=== PATIENT | male | born 1975 | race American Indian/Alaskan Native ===

== ENCOUNTER 2019-03-21 00:11 | Emergency (ER) | payer SELFPAY ==
[2019-03-21] MEDS ORDERED: ASPIRIN PO ONE (00:55)
--- NOTE | 2019-03-21 01:20 | XRay Report ---
CHEST 1 VIEW INDICATION / CLINICAL INFORMATION: Chest Pain. COMPARISON: None available. FINDINGS: SUPPORT DEVICES: None. HEART / MEDIASTINUM: No significant abnormality. LUNGS / PLEURA: No significant pulmonary or pleural abnormality. No pneumothorax. ADDITIONAL FINDINGS: No significant additional findings. IMPRESSION: 1. No acute findings. Signer Name: Beto Lopez MD Signed: 03/21/2019 1:16 AM Workstation Name: [id number]
[2019-03-21 01:34] LABS: Basophils % (Auto) 0.7 % (0.0-1.8); Eosinophils # (Auto) 0.3 K/mm3 (0.0-0.4); Eosinophils % (Auto) 5.3 % (0.0-4.3); Lymphocytes # (Auto) 2.2 K/mm3 (1.2-5.4); Lymphocytes % (Auto) 43.9 % (13.4-35.0); Mean Corpuscular HGB Conc 34 % (32-34); Mean Corpuscular Volume 90 fl (84-94); Monocytes # (Auto) 0.4 K/mm3 (0.0-0.8); Monocytes % (Auto) 8.6 % (0.0-7.3); Platelet Count 179 K/mm3 (140-440); Red Blood Count 4.21 M/mm3 (3.65-5.03); Red Cell Distribution Width 14.7 % (13.2-15.2)
[2019-03-21 01:54] LABS: BUN/Creatinine Ratio 21; Blood Urea Nitrogen 19 mg/dL (9-20); Hemolysis Index 16
--- NOTE | 2019-03-21 03:24 | Emergency Department Report ---
ED General Adult HPI - General Chief complaint: Dyspnea/Respdistress Stated complaint: SOB,NUMBNESS TO LEFT ARM AND LEG Time Seen by Provider: 03/21/19 03:20 Source: patient Mode of arrival: Ambulatory Limitations: No Limitations - History of Present Illness Initial comments: pt is a 43 y/o aam who presents for sob and arm and leg aching numbness pt chelsea es fall injury or trauma , states hx of same in past related to anxiety, states symptoms wax and tomas there is no n/v no diaphoresis there associated sinus congestion and post nasal drip there is no wheezing, cough is productive clear , symptoms are rlieved by rest , symptom exacerbated by environmental exposure Onset/Timin -: days(s) Location: chest (chest wall right lateral ) Radiation: extremity Severity scale (0 -10): 3 Quality: burning, other (numbness ) Consistency: intermittent Improves with: rest Worsens with: movement, other (activity ) Associated Symptoms: chest pain, cough, shortness of breath. denies: confusion, diaphoresis, fever/chills, headaches, loss of appetite, malaise, nausea/vomiting, rash, seizure, syncope, weakness - Related Data Previous Rx's Medication Instructions Recorded Last Taken Type Fluticasone [Flonase] 1 spray NS QDAY #1 bottle 03/21/19 Unknown Rx Ibuprofen [Motrin 800 MG tab] 800 mg PO Q8HR PRN #30 tablet 03/21/19 Unknown Rx Loratadine [Allergy Relief] 10 mg PO DAILY #30 tablet 03/21/19 Unknown Rx diphenhydrAMINE [Benadryl CAP] 25 mg PO Q6HR PRN #30 capsule 03/21/19 Unknown Rx Allergies Allergy/AdvReac Type Severity Reaction Status Date / Time Penicillins Allergy Unknown Verified 03/21/19 00:34 ED Review of Systems ROS: Stated complaint: SOB,NUMBNESS TO LEFT ARM AND LEG Other details as noted in HPI Constitutional: malaise. denies: chills, fever Eyes: denies: eye pain, eye discharge, vision change ENT: congestion Respiratory: cough. denies: orthopnea, shortness of breath, wheezing Cardiovascular: denies: chest pain, palpitations Endocrine: no symptoms reported Gastrointestinal: denies: abdominal pain, nausea, vomiting, diarrhea Genitourinary: denies: urgency, dysuria Musculoskeletal: arthralgia. denies: back pain, joint swelling, myalgia Skin: denies: rash, lesions Neurological: denies: headache, weakness, numbness, paresthesias, confusion, vertigo Psychiatric: anxiety. denies: depression, auditory hallucinations, visual hallucinations, homicidal thoughts, suicidal thoughts Hematological/Lymphatic: denies: easy bleeding, easy bruising ED Past Medical Hx - Past Medical History Previous Medical History?: Yes Additional medical history: brian cholerstrol - Surgical History Past Surgical History?: No - Social History Smoking Status: Former Smoker Substance Use Type: Alcohol - Medications Home Medications: Home Medications Medication Instructions Recorded Confirmed Last Taken Type Fluticasone [Flonase] 1 spray NS QDAY #1 bottle 03/21/19 Unknown Rx Ibuprofen [Motrin 800 MG tab] 800 mg PO Q8HR PRN #30 tablet 03/21/19 Unknown Rx Loratadine [Allergy Relief] 10 mg PO DAILY #30 tablet 03/21/19 Unknown Rx diphenhydrAMINE [Benadryl CAP] 25 mg PO Q6HR PRN #30 capsule 03/21/19 Unknown Rx ED Physical Exam - General Limitations: No Limitations General appearance: alert, in no apparent distress - Head Head exam: Present: atraumatic, normocephalic - Eye Eye exam: Present: normal appearance, PERRL, EOMI Pupils: Present: normal accommodation - ENT ENT exam: Present: mucous membranes moist, TM's normal bilaterally, normal external ear exam. Absent: normal orophraynx - Expanded ENT Exam Expanded Ear exam: Present: normal external inspection Mouth exam: Absent: trismus Teeth exam: Present: dental caries Throat exam: Positive: tonsillar erythema, tonsillomegaly. Negative: tonsillar exudate, R peritonsillar mass, L peritonsillar mass - Neck Neck exam: Present: normal inspection, full ROM. Absent: tenderness, meningismus, lymphadenopathy, thyromegaly - Respiratory Respiratory exam: Present: normal lung sounds bilaterally, chest wall tenderness (right latera chest wall pain reproducible to palpation ). Absent: respiratory distress, wheezes, stridor, prolonged expiratory - Cardiovascular Cardiovascular Exam: Present: regular rate, normal rhythm, normal heart sounds. Absent: systolic murmur, diastolic murmur, rubs, gallop - GI/Abdominal GI/Abdominal exam: Present: soft, normal bowel sounds. Absent: distended, tenderness, guarding, rigid, bruit, hernia - Rectal Rectal exam: Present: deferred, normal inspection - Extremities Exam Extremities exam: Present: normal inspection, full ROM, normal capillary refill. Absent: tenderness, pedal edema, joint swelling, calf tenderness - Back Exam Back exam: Present: normal inspection, full ROM, CVA tenderness (R), CVA tenderness (L). Absent: tenderness, muscle spasm, paraspinal tenderness, vertebral tenderness, rash noted - Neurological Exam Neurological exam: Present: alert, oriented X3, CN II-XII intact, normal gait, reflexes normal. Absent: motor sensory deficit - Psychiatric Psychiatric exam: Present: anxious. Absent: flat affect, homicidal ideation, suicidal ideation - Skin Skin exam: Present: warm, dry, intact, normal color. Absent: rash ED Course Vital Signs 03/21/19 00:15 Temperature 98.4 F Pulse Rate 69 Respiratory 18 Rate Blood Pressure 130/83 O2 Sat by Pulse 100 Oximetry ED Medical Decision Making - Lab Data Result diagrams: 03/21/19 01:15 03/21/19 01:15 - Radiology Data Radiology results: report reviewed, image reviewed Ordering Physician: PAMELA HENLEY MD Date of Service: 03/21/19 Procedure(s): XR chest 1V ap Accession Number(s): [id number] cc: ED MD KALE Fluoro Time In Minutes: CHEST 1 VIEW INDICATION / CLINICAL INFORMATION: Chest Pain. COMPARISON: None available. FINDINGS: SUPPORT DEVICES: None. HEART / MEDIASTINUM: No significant abnormality. LUNGS / PLEURA: No significant pulmonary or pleural abnormality. No pneumothorax. ADDITIONAL FINDINGS: No significant additional findings. IMPRESSION: 1. No acute findings. Signer Name: Beto Lopez MD Signed: 03/21/2019 1:16 AM Workstation Name: [id number] Transcribed By: GA Dictated By: Beto Lopez MD Electronically Authenticated By: Beto Lopez MD Signed Date/Time: 03/21/19115 DD/ 4 TD/TT: - Medical Decision Making this is URI , allergic rhinitis, pt hx hx of anxiety, there is no cp, trop: , 0.01 x1, cxr: normal no chest pain, no n/v no diaphoresis no back pain , arm and leg pian improved with medication pt will follow up with pcp in 1-2 days , return to emergency and core protection. Critical care attestation.: If time is entered above; I have spent that time in minutes in the direct care of this critically ill patient, excluding procedure time. ED Disposition Clinical Impression: URI (upper respiratory infection) Qualifiers: URI type: unspecified viral URI Qualified Code(s): J06.9 - Acute upper respiratory infection, unspecified Disposition: TO HOME OR SELFCARE Is pt being admited?: No Does the pt Need Aspirin: No Condition: Stable Instructions: Chest Pain (ED), Upper Respiratory Infection (ED) Prescriptions: Loratadine [Allergy Relief] 10 mg PO DAILY #30 tablet diphenhydrAMINE [Benadryl CAP] 25 mg PO Q6HR PRN #30 capsule PRN Reason: congestion Fluticasone [Flonase] 1 spray NS QDAY #1 bottle Ibuprofen [Motrin 800 MG tab] 800 mg PO Q8HR PRN #30 tablet PRN Reason: Pain , Severe (7-10) Forms: AMA Form, Work/School Release Form(ED) Time of Disposition: 04:47
[2019-03-21 05:10] VITALS: BP 117/88
== END 2019-03-21 05:11 | disposition home or self-care (01) ==
LOC: ED 00:11
DX: J06.9 Acute upper respiratory infection, unspecified (principal); E78.00 Pure hypercholesterolemia, unspecified; Z87.891 Personal history of nicotine dependence; Z88.0 Allergy status to penicillin; Z79.1 Long term (current) use of non-steroidal anti-inflammatories (NSAID); Z79.899 Other long term (current) drug therapy
CPT/HCPCS: 36415; 71045; 80048; 84484; 85025; 93005; 93010; 99284

== ENCOUNTER 2019-06-10 11:01 | Emergency (ER) | payer SELFPAY ==
--- NOTE | 2019-06-10 11:15 | Event Note ---
ED Screening Note ED Screening Note: states he has blurred vision in the left eye denies any drainage did not get anything in the eye he remembers no foreign body sensation states he used drops over the counter from [employer] no PMHx allergies to meds This initial assessment/diagnostic orders/clinical plan/treatment(s) is/are subject to change based on patients health status, clinical progression and re- assessment by fellow clinical providers in the ED. Further treatment and workup at subsequent clinical providers discretion. Patient/guardian urged not to elope from the ED as their condition may be serious if not clinically assessed and managed. Initial orders include: visual acuity
--- NOTE | 2019-06-10 11:32 | Emergency Department Report ---
ED Eye Problem HPI - General Chief complaint: Eye Problems Stated complaint: EYE VISION Time Seen by Provider: 06/10/19 11:13 Source: patient Mode of arrival: Ambulatory Limitations: No Limitations - History of Present Illness Initial comments: 43 y/o male states he has blurred vision in the left eye and pressure. denies any drainage did not get anything in the eye he remembers no foreign body sensation states he used drops over the counter from [employer] no PMHx allergies to meds PCN. Patient has never had his eyes examine. Does not wear contacts. chief complaint: vision change Onset/Timin -: week(s) Location: left eye If Injury: none Severity scale (0 -10): 7 If Pain, Quality: other (pressure) Consistency: intermittent Associated Symptoms: none Treatments Prior to Arrival: OTC eye drops - Related Data Previous Rx's Medication Instructions Recorded Last Taken Type Fluticasone [Flonase] 1 spray NS QDAY #1 bottle 03/21/19 Unknown Rx Ibuprofen [Motrin 800 MG tab] 800 mg PO Q8HR PRN #30 tablet 03/21/19 Unknown Rx Loratadine [Allergy Relief] 10 mg PO DAILY #30 tablet 03/21/19 Unknown Rx diphenhydrAMINE [Benadryl CAP] 25 mg PO Q6HR PRN #30 capsule 03/21/19 Unknown Rx Erythromycin [Erythromycin Ophth 1 applic OD QID 10 Days #1 tube 06/10/19 Unknown Rx Oint] Allergies Allergy/AdvReac Type Severity Reaction Status Date / Time Penicillins Allergy Unknown Verified 03/21/19 00:34 ED Review of Systems ROS: Stated complaint: EYE VISION Other details as noted in HPI Comment: All other systems reviewed and negative ED Past Medical Hx - Past Medical History Previous Medical History?: Yes Additional medical history: brian cholerstrol - Surgical History Past Surgical History?: No - Social History Smoking Status: Current Every Day Smoker Substance Use Type: None - Medications Home Medications: Home Medications Medication Instructions Recorded Confirmed Last Taken Type Fluticasone [Flonase] 1 spray NS QDAY #1 bottle 03/21/19 Unknown Rx Ibuprofen [Motrin 800 MG tab] 800 mg PO Q8HR PRN #30 tablet 03/21/19 Unknown Rx Loratadine [Allergy Relief] 10 mg PO DAILY #30 tablet 03/21/19 Unknown Rx diphenhydrAMINE [Benadryl CAP] 25 mg PO Q6HR PRN #30 capsule 03/21/19 Unknown Rx Erythromycin [Erythromycin Ophth 1 applic OD QID 10 Days #1 tube 06/10/19 Unknown Rx Oint] ED Physical Exam - General Limitations: No Limitations General appearance: alert, in no apparent distress - Expanded Eye Exam Expanded Eyelids: Normal Inspection: Left Pupils: Regular, Round: Bilateral Sclera/Conjunctival: Injection: Left ED Course Vital Signs 06/10/19 11:12 Temperature 98.0 F Pulse Rate 79 Respiratory 18 Rate Blood Pressure 133/89 O2 Sat by Pulse 99 Oximetry Critical care attestation.: If time is entered above; I have spent that time in minutes in the direct care of this critically ill patient, excluding procedure time. ED Disposition Clinical Impression: Corneal abrasion, left Disposition: DC-01 TO HOME OR SELFCARE Is pt being admited?: No Does the pt Need Aspirin: No Condition: Stable Instructions: Corneal Abrasion (ED) Prescriptions: Erythromycin [Erythromycin Ophth Oint] 1 applic OD QID 10 Days #1 tube Referrals: [facility] [Provider Group] - 3-5 Days MIGUEL VILLATORO MD [Staff Physician] - 3-5 Days
[2019-06-10] MEDS ORDERED: FLUORESCEIN 1 MG STRIP OP ONE (11:35)
[2019-06-10] MEDS ORDERED: BALANCED SALT IRRIG (BSS) OPHTH SOLN 15 ML OU ONE (11:35)
[2019-06-10] MEDS ORDERED: TETRACAINE 0.5% OPHTH SOLN 4ML OU ONE (11:35)
[2019-06-10 12:33] VITALS: BP 121/85
== END 2019-06-10 12:32 | disposition home or self-care (01) ==
LOC: ED 11:01
DX: S00.212A Abrasion of left eyelid and periocular area, initial encounter (principal); F17.200 Nicotine dependence, unspecified, uncomplicated; E78.00 Pure hypercholesterolemia, unspecified; Z79.899 Other long term (current) drug therapy; Z88.0 Allergy status to penicillin; X58.XXXA Exposure to other specified factors, initial encounter; Y93.89 Activity, other specified; Y92.89 Other specified places as the place of occurrence of the external cause; Y99.8 Other external cause status

== ENCOUNTER 2019-09-24 18:38 | Emergency (ER) | payer SELFPAY ==
--- NOTE | 2019-09-24 19:37 | Event Note ---
ED Screening Note Date of service: 09/24/19 Time: 19:32 ED Screening Note: Pt c/o left sided eye pain, headache, and blurry vision x 3 days denies trauma This initial assessment/diagnostic orders/clinical plan/treatment(s) is/are subject to change based on patients health status, clinical progression and re- assessment by fellow clinical providers in the ED. Further treatment and workup at subsequent clinical providers discretion. Patient/guardian urged not to elope from the ED as their condition may be serious if not clinically assessed and managed. Initial orders include: ACC
[2019-09-24] MEDS ORDERED: FLUORESCEIN 1 MG STRIP OP ONE (23:16)
--- NOTE | 2019-09-24 23:37 | Emergency Department Report ---
ED Eye Problem HPI - General Chief complaint: Headache Stated complaint: BLURRED VISION/HEAD PAIN Time Seen by Provider: 09/24/19 19:31 Source: patient Mode of arrival: Ambulatory Limitations: No Limitations - History of Present Illness Initial comments: 44-year-old male presents to the ER this evening complaining of left eye pain and redness. Patient states that it started about 3 days ago. He reports intermittent photophobia. He also reports associated headaches, and some blurry vision in the left eye. He denies any injury to the eye. Increased tearing, but no purulent drainage, and no matting. He denies any foreign body sensation. Denies any welding or grinding. She stated that he had similar symptoms back in June 2019. He states that he was seen and evaluated here at the time, he was told that it was likely secondary to a bacterial infection to the eye. He states that he was prescribed erythromycin at the time, but never used it because his eye symptoms resolved after a day or 2. He states that in the past 3 days he has been using lubricating eyedrops, which hasn't been doing much helping. He states that he tried to find erythromycin antibiotic eye ointment that was prescribed in June was unable to. He does not wear any glasses or contacts. MD chief complaint: eye pain, eye redness, vision change -: Gradual, days(s) (3 days ago ) Location: left eye If Injury: none - Related Data Previous Rx's Medication Instructions Recorded Last Taken Type Fluticasone [Flonase] 1 spray NS QDAY #1 bottle 03/21/19 Unknown Rx Loratadine [Allergy Relief] 10 mg PO DAILY #30 tablet 03/21/19 Unknown Rx diphenhydrAMINE [Benadryl CAP] 25 mg PO Q6HR PRN #30 capsule 03/21/19 Unknown Rx Erythromycin [Erythromycin Ophth 1 applic OD QID 10 Days #1 tube 06/10/19 Unknown Rx Oint] Ibuprofen [Motrin 800 MG tab] 800 mg PO Q8HR PRN #30 tablet 09/24/19 Unknown Rx Tobramycin/Dexamethasone [Tobradex 1 drop OS Q4HR 7 Days #1 drops.susp 09/24/19 Unknown Rx Eye Drops 0.3/0.1%] Allergies Allergy/AdvReac Type Severity Reaction Status Date / Time Penicillins Allergy Unknown Verified 03/21/19 00:34 ED Review of Systems ROS: Stated complaint: BLURRED VISION/HEAD PAIN Other details as noted in HPI Constitutional: denies: chills, fever Eyes: eye pain, vision change, other (increased tearing) ENT: denies: ear pain, throat pain, hearing loss, congestion Skin: denies: rash Neurological: headache. denies: weakness, numbness, paresthesias, confusion, vertigo ED Past Medical Hx - Past Medical History Previous Medical History?: Yes Additional medical history: brian cholesterol - Surgical History Past Surgical History?: No - Social History Smoking Status: Current Every Day Smoker Substance Use Type: Alcohol, Marijuana - Medications Home Medications: Home Medications Medication Instructions Recorded Confirmed Last Taken Type Fluticasone [Flonase] 1 spray NS QDAY #1 bottle 03/21/19 Unknown Rx Loratadine [Allergy Relief] 10 mg PO DAILY #30 tablet 03/21/19 Unknown Rx diphenhydrAMINE [Benadryl CAP] 25 mg PO Q6HR PRN #30 capsule 03/21/19 Unknown Rx Erythromycin [Erythromycin Ophth 1 applic OD QID 10 Days #1 tube 06/10/19 Unknown Rx Oint] Ibuprofen [Motrin 800 MG tab] 800 mg PO Q8HR PRN #30 tablet 09/24/19 Unknown Rx Tobramycin/Dexamethasone [Tobradex 1 drop OS Q4HR 7 Days #1 drops.susp 09/24/19 Unknown Rx Eye Drops 0.3/0.1%] ED Physical Exam - General Limitations: No Limitations General appearance: alert, in no apparent distress - Head Head exam: Present: atraumatic, normocephalic, normal inspection - Eye Eye exam: Present: PERRL, EOMI, conjunctival injection, other (Left conjunctiva moderately injected; No purulent drainage or crusting noted; no apparent foriegn body noted; Roberts lamp exam -- show nothing acute; IOP left eye 25, IOP right eye 22 ). Absent: periorbital swelling, periorbital tenderness Pupils: Present: normal accommodation, other (Visual acuity reviewed and normal ) - Respiratory Respiratory exam: Absent: respiratory distress - Cardiovascular Cardiovascular Exam: Present: regular rate - Neurological Exam Neurological exam: Present: alert, oriented X3, CN II-XII intact, normal gait. Absent: motor sensory deficit - Skin Skin exam: Present: intact ED Course Vital Signs 09/24/19 18:40 Temperature 98.4 F Pulse Rate 77 Respiratory 16 Rate Blood Pressure 126/83 O2 Sat by Pulse 98 Oximetry Critical care attestation.: If time is entered above; I have spent that time in minutes in the direct care of this critically ill patient, excluding procedure time. ED Disposition Clinical Impression: Conjunctivitis Disposition: DC-01 TO HOME OR SELFCARE Is pt being admited?: No Does the pt Need Aspirin: No Condition: Stable Instructions: Conjunctivitis (ED) Prescriptions: Ibuprofen [Motrin 800 MG tab] 800 mg PO Q8HR PRN #30 tablet PRN Reason: Pain , Severe (7-10) Tobramycin/Dexamethasone [Tobradex Eye Drops 0.3/0.1%] 1 drop OS Q4HR 7 Days #1 drops.susp Referrals: LINDSAY RAGSDALE MD [Staff Physician] - 3-5 Days Time of Disposition: 23:55
[2019-09-25 00:11] VITALS: BP 115/79
== END 2019-09-25 00:10 | disposition home or self-care (01) ==
LOC: ED 18:38
DX: H10.9 Unspecified conjunctivitis (principal); F17.200 Nicotine dependence, unspecified, uncomplicated; F12.10 Cannabis abuse, uncomplicated
CPT/HCPCS: 99283

== ENCOUNTER 2019-11-01 13:35 | Emergency (ER) | payer SELFPAY ==
[2019-11-02 02:58] VITALS: BP 112/79
== END 2019-11-01 17:38 | disposition left against medical advice (07) ==
LOC: ED 13:35
DX: R20.0 Anesthesia of skin (principal); Z53.21 Procedure and treatment not carried out due to patient leaving prior to being seen by health care provider
CPT/HCPCS: 93005; 93010

== ENCOUNTER 2019-11-18 17:27 | Emergency (ER) | payer SELFPAY ==
--- NOTE | 2019-11-18 17:50 | Event Note ---
ED Screening Note ED Screening Note: The patient was seen in triage for chest pain wtih aches and sob Labs/imaging ordered to evaluate for a cause of this complaint. Vital signs reviewed, patient awake and alert in NAD. This initial assessment/diagnostic orders/clinical plan/treatment(s) is/are subject to change based on patients health status, clinical progression and re- assessment by fellow clinical providers in the ED. Further treatment and workup at subsequent clinical providers discretion. Patient/guardian urged not to elope from the ED as their condition may be serious if not clinically assessed and managed. Initial orders include:
--- NOTE | 2019-11-18 18:13 | XRay Report ---
CHEST 2 VIEWS INDICATION / CLINICAL INFORMATION: MAIN: chest pain and aches; pt presents to ed with complaint of chest pain. COMPARISON: None available. FINDINGS: SUPPORT DEVICES: None. HEART / MEDIASTINUM: No significant abnormality. LUNGS / PLEURA: No significant pulmonary or pleural abnormality. No pneumothorax. ADDITIONAL FINDINGS: No significant additional findings. IMPRESSION: 1. No acute findings. Signer Name: Beto Lopez MD Signed: 11/18/2019 6:09 PM Workstation Name: [id number]
[2019-11-18] MEDS: ASPIRIN 325 MG TAB PO ONE ×2 (20:02→20:03)
[2019-11-18 20:34] LABS: Basophils % (Auto) 0.5 % (0.0-1.8); Eosinophils # (Auto) 0.1 K/mm3 (0.0-0.4); Eosinophils % (Auto) 3.2 % (0.0-4.3); Hematocrit 43.8 % (35.5-45.6); Hemoglobin 14.5 gm/dl (11.8-15.2); Lymphocytes # (Auto) 1.7 K/mm3 (1.2-5.4); Lymphocytes % (Auto) 40.7 % (13.4-35.0); Mean Corpuscular HGB Conc 33 % (32-34); Mean Corpuscular Volume 91 fl (84-94); Monocytes # (Auto) 0.5 K/mm3 (0.0-0.8); Monocytes % (Auto) 11.7 % (0.0-7.3); Platelet Count 168 K/mm3 (140-440); Red Blood Count 4.83 M/mm3 (3.65-5.03); Red Cell Distribution Width 14.7 % (13.2-15.2)
[2019-11-18 20:54] LABS: Alanine Aminotransferase 43 units/L (7-56); Albumin 4.7 g/dL (3.9-5); BUN/Creatinine Ratio 25; Blood Urea Nitrogen 20 mg/dL (9-20); Calcium 9.4 mg/dL (8.4-10.2); Hemolysis Index 10
--- NOTE | 2019-11-18 23:57 | Emergency Department Report ---
ED Chest Pain HPI - General Chief Complaint: Chest Pain Stated Complaint: CHEST PAIN/HEADACHE/SOB Time Seen by Provider: 11/18/19 17:37 Source: patient Mode of arrival: Ambulatory Limitations: No Limitations - History of Present Illness Initial Comments: Patient is a 44-year-old -Luxembour[place] male with no past medical history except chronic heavy tobacco abuse who presents to the ED with complaint of acute onset persistent intermittent left-sided chest pain with shortness of breath and headache for the last 1 week, although the patient states that he has had similar symptoms in the past which self resolved. Patient states that in the last 12 hours the symptoms have become more frequent and describes the pain as pressure-like tightness that is intermittent. Patient denies nausea, vomiting, diarrhea, cough, palpitations, syncope, change in vision, abdominal pain, sore throat, traumatic injury or heavy lifting, fever and chills. MD Complaint: chest pain, other (body aches; shortness of breath) -: Sudden, week(s) (1) Onset: awoke with symptoms Pain Location: left chest Pain Radiation: LUE Severity: moderate Severity scale (0 -10): 4 Quality: aching, pressure Consistency: intermittent Improves With: nothing Worsens With: nothing re: dyspnea. denies: nausea, vomting, diaphoresis, sense of impending doom Other Symptoms: denies: cough, fever, syncope, rash, acid taste in mouth, leg swelling, palpitations Treatments Prior to Arrival: none Aspirin use within the Past 7 Days: (1) Yes - Related Data On Oral Contraceptives: No Previous Rx's Medication Instructions Recorded Last Taken Type Fluticasone [Flonase] 1 spray NS QDAY #1 bottle 03/21/19 Unknown Rx Loratadine [Allergy Relief] 10 mg PO DAILY #30 tablet 03/21/19 Unknown Rx diphenhydrAMINE [Benadryl CAP] 25 mg PO Q6HR PRN #30 capsule 03/21/19 Unknown Rx Erythromycin [Erythromycin Ophth 1 applic OD QID 10 Days #1 tube 06/10/19 Unknown Rx Oint] Ibuprofen [Motrin 800 MG tab] 800 mg PO Q8HR PRN #30 tablet 09/24/19 Unknown Rx Tobramycin/Dexamethasone [Tobradex 1 drop OS Q4HR 7 Days #1 drops.susp 09/24/19 Unknown Rx Eye Drops 0.3/0.1%] Naproxen 500 mg PO Q12H PRN #24 tablet 11/19/19 Unknown Rx hydrOXYzine PAMOATE [Vistaril] 25 mg PO Q6HR PRN #24 capsule 11/19/19 Unknown Rx Allergies Allergy/AdvReac Type Severity Reaction Status Date / Time Penicillins Allergy Unknown Verified 03/21/19 00:34 Heart Score - HEART Score History: Slightly suspicious EKG: Normal Age: < 45 Risk factors: 1-2 risk factors Troponin: < normal limit HEART Score: 1 - Critical Actions Critical Actions: 0-3 pts:0.9-1.7%risk of adverse cardiac event.Candidate for discharge ED Review of Systems ROS: Stated complaint: CHEST PAIN/HEADACHE/SOB Other details as noted in HPI Constitutional: denies: chills, fever Eyes: denies: eye pain, eye discharge, vision change ENT: denies: ear pain, throat pain Respiratory: denies: cough, shortness of breath, SOB with exertion, wheezing Cardiovascular: chest pain (Left-sided chest pain). denies: palpitations Endocrine: no symptoms reported Gastrointestinal: denies: abdominal pain, nausea, vomiting, diarrhea Genitourinary: denies: urgency, dysuria Musculoskeletal: denies: back pain, joint swelling, arthralgia Skin: denies: rash, lesions Neurological: headache. denies: weakness, paresthesias Psychiatric: denies: anxiety, depression Hematological/Lymphatic: denies: easy bleeding, easy bruising ED Past Medical Hx - Past Medical History Previous Medical History?: Yes Additional medical history: brian cholesterol - Surgical History Past Surgical History?: Yes - Social History Smoking Status: Never Smoker Substance Use Type: None - Medications Home Medications: Home Medications Medication Instructions Recorded Confirmed Last Taken Type Fluticasone [Flonase] 1 spray NS QDAY #1 bottle 03/21/19 Unknown Rx Loratadine [Allergy Relief] 10 mg PO DAILY #30 tablet 03/21/19 Unknown Rx diphenhydrAMINE [Benadryl CAP] 25 mg PO Q6HR PRN #30 capsule 03/21/19 Unknown Rx Erythromycin [Erythromycin Ophth 1 applic OD QID 10 Days #1 tube 06/10/19 Unknown Rx Oint] Ibuprofen [Motrin 800 MG tab] 800 mg PO Q8HR PRN #30 tablet 09/24/19 Unknown Rx Tobramycin/Dexamethasone [Tobradex 1 drop OS Q4HR 7 Days #1 drops.susp 09/24/19 Unknown Rx Eye Drops 0.3/0.1%] Naproxen 500 mg PO Q12H PRN #24 tablet 11/19/19 Unknown Rx hydrOXYzine PAMOATE [Vistaril] 25 mg PO Q6HR PRN #24 capsule 11/19/19 Unknown Rx ED Physical Exam - General Limitations: No Limitations General appearance: alert, in no apparent distress - Head Head exam: Present: atraumatic, normocephalic, normal inspection - Eye Eye exam: Present: normal appearance, PERRL, EOMI Pupils: Present: normal accommodation - ENT ENT exam: Present: normal exam, normal orophraynx, mucous membranes moist, TM's normal bilaterally, normal external ear exam - Neck Neck exam: Present: normal inspection, full ROM - Respiratory Respiratory exam: Present: normal lung sounds bilaterally. Absent: respiratory distress, wheezes, rhonchi, chest wall tenderness, decreased breath sounds, prolonged expiratory - Cardiovascular Cardiovascular Exam: Present: regular rate, normal rhythm, normal heart sounds. Absent: systolic murmur, diastolic murmur, rubs, gallop - GI/Abdominal GI/Abdominal exam: Present: soft, normal bowel sounds. Absent: tenderness, guarding, rebound, hyperactive bowel sounds, hypoactive bowel sounds, organomegaly - Extremities Exam Extremities exam: Present: normal inspection, full ROM, normal capillary refill - Back Exam Back exam: Present: normal inspection, full ROM. Absent: tenderness, CVA tenderness (R), CVA tenderness (L), muscle spasm, paraspinal tenderness, vertebral tenderness - Neurological Exam Neurological exam: Present: alert, oriented X3, CN II-XII intact, normal gait, reflexes normal - Psychiatric Psychiatric exam: Present: normal affect, normal mood - Skin Skin exam: Present: warm, dry, intact, normal color. Absent: rash ED Course Vital Signs 11/18/19 11/18/19 17:36 17:40 Temperature 97.6 F 97.6 F Pulse Rate 83 76 Respiratory 18 18 Rate Blood Pressure 123/83 123/83 O2 Sat by Pulse 99 99 Oximetry BEULAH score - Beulah Score Age > 65: (0) No Aspirin use within the Past 7 Days: (0) No 3 or more CAD Risk Factors: (0) No 2 or more Angina events in past 24 hrs: (0) No Known CAD with more than 50% Stenosis: (0) No Elevated Cardiac Markers: (0) No ST Deviation Greater than 0.5mm: (0) No BEULAH Score: 0 ED Medical Decision Making - Lab Data Result diagrams: 11/18/19 20:14 11/18/19 20:14 - EKG Data EKG shows normal: sinus rhythm Rate: normal - EKG Data Interpretation: normal EKG 11/18/19 23:58 The EKG shows normal sinus rhythm with a ventricular rate of [address] or T wave abnormalities. - Radiology Data Radiology results: report reviewed, image reviewed Chest x-ray shows no acute cardiopulmonary abnormalities or pneumonitis. - Medical Decision Making This is a 44-year-old male with a history of chronic heavy tobacco abuse who pre sented to the ED with left-sided chest pain that radiates to the left arm intermittently with shortness of breath and headache for the last 1 week, and which got worse in the last 12 hours. In the ED, patient is alert and oriented x3 and is not in distress with normal vital signs. The EKG shows normal sinus rhythm with a ventricular rate of [address] or T wave abnormalities. Chest x-ray shows no acute cardiopulmonary abnormalities. Lab test results were reviewed and are all nonactionable including initial and repeat troponin levels. Patient heart score is 1 and he is PERC negative by Wells criteria. Patient was also advised to consider quitting tobacco abuse which he will bleed to doing. Patient symptoms are likely due to anxiety and nonspecific musculoskeletal chest wall pain. Patient was discharged home on medications and advised to follow-up with his primary care physician in 7 to 10 days for reevaluation or return to the ED immediately if symptoms get worse. - Differential Diagnosis CAD; Anxiety; Muscle strain; costochondritis Critical care attestation.: If time is entered above; I have spent that time in minutes in the direct care of this critically ill patient, excluding procedure time. ED Disposition Clinical Impression: Acute nonspecific chest pain with low risk of coronary artery disease, Muscle strain of anterior chest wall, Anxiety as acute reaction to exceptional stress Disposition: DC-01 TO HOME OR SELFCARE Is pt being admited?: No Does the pt Need Aspirin: No Condition: Stable Instructions: Chest Pain (ED), Muscle Strain (ED), Costochondritis (ED), Anxiety (ED) Additional Instructions: All test results are unremarkable with no acute process. Therefore take medication as advised and follow-up with your primary care physician in 7 to 10 days for reevaluation. Return to the ED immediately if symptoms get worse. Prescriptions: Naproxen 500 mg PO Q12H PRN #24 tablet PRN Reason: Pain , Severe (7-10) hydrOXYzine PAMOATE [Vistaril] 25 mg PO Q6HR PRN #24 capsule PRN Reason: Anxiety Referrals: NISREEN AGUDELO MD [Staff Physician] - 7-10 days Time of Disposition: 00:03 Print Language: TURKISH
[2019-11-19 00:37] VITALS: BP 126/85
== END 2019-11-19 00:36 | disposition home or self-care (01) ==
LOC: ED 17:27
DX: S29.011A Strain of muscle and tendon of front wall of thorax, initial encounter (principal); F41.8 Other specified anxiety disorders; E78.00 Pure hypercholesterolemia, unspecified; Z79.899 Other long term (current) drug therapy; Z88.0 Allergy status to penicillin; X58.XXXA Exposure to other specified factors, initial encounter; Y93.89 Activity, other specified; Y92.89 Other specified places as the place of occurrence of the external cause; Y99.8 Other external cause status
CPT/HCPCS: 36415; 71046; 80053; 84484; 85025; 93005; 93010

== ENCOUNTER 2020-05-09 23:24 | Emergency (ER) | payer SELFPAY ==
[2020-05-10 00:17] VITALS: BP 136/90
[2020-05-10 00:59] LABS: Basophils % (Auto) 0.3 % (0.0-1.8); Eosinophils # (Auto) 0.1 K/mm3 (0.0-0.4); Eosinophils % (Auto) 2.2 % (0.0-4.3); Hematocrit 41.5 % (35.5-45.6); Hemoglobin 13.9 gm/dl (11.8-15.2); Mean Corpuscular HGB Conc 34 % (32-34); Mean Corpuscular Volume 91 fl (84-94); Monocytes # (Auto) 0.6 K/mm3 (0.0-0.8); Monocytes % (Auto) 12.4 % (0.0-7.3); Platelet Count 175 K/mm3 (140-440); Red Blood Count 4.56 M/mm3 (3.65-5.03); Red Cell Distribution Width 14.9 % (13.2-15.2)
[2020-05-10 01:18] LABS: BUN/Creatinine Ratio 21; Blood Urea Nitrogen 17 mg/dL (9-20); Calcium 9.6 mg/dL (8.4-10.2); Hemolysis Index 8
[2020-05-10] MEDS ORDERED: predniSONE 20 MG TAB PO ONE (02:15)
[2020-05-10] MEDS ORDERED: IBUPROFEN 600 MG TAB PO ONE (02:15)
[2020-05-10] MEDS ORDERED: IPRATROPIUM/ALBUTEROL SULFATE 3 ML AMPUL.NEB IH ONE (02:15)
--- NOTE | 2020-05-10 02:57 | XRay Report ---
CHEST 2 VIEWS INDICATION: cough. COMPARISON: 11/18/2019. FINDINGS: Support devices: None. Heart: Within normal limits. Lungs/Pleura: No acute air space or interstitial disease. No significant pleural effusion. IMPRESSION: No acute findings. Signer Name: Hira Warner MD Signed: 05/10/2020 2:52 AM Workstation Name: [id number]
--- NOTE | 2020-05-10 03:18 | Emergency Department Report ---
- General Chief Complaint: Dyspnea/Respdistress Stated Complaint: BRITTNEY/COUGH Source: patient Mode of arrival: Ambulatory Limitations: No Limitations - History of Present Illness Initial Comments: Patient is 44 yo AA male with no past medical history who presents to the ED with c/o acute onset persistent nasal and sinus congestion, frontal sinus congestion, headache, sore throat and hoarseness, dry cough with generalized weakness for the last 1 week, worse in the last 2 days. Patient states that he has been taking OTC remedies with no relief. Patient states that he decided to come to the ED for evaluation when the symptoms get worse. Patient denies dyspnea, nausea, vomiting, chest pain, dizziness, vision changes, fever and chills, abdominal pain or vision changes. MD Complaint: cough, sore throat, rhinorrhea, nasal congestion -: Sudden, week(s) (1) Severity: moderate Severity scale (0 -10): 6 Quality: sharp, aching Consistency: constant Improves With: OTC cold medicine, cough suppressant Worsens With: nothing Associated Symptoms: denies other symptoms, headache, rhinorrhea, nasal congestion, sore throat, cough, shortness of breath. denies: fever, chills, myalgias, stiff neck, chest pain, nausea, vomiting, diarrhea, dysuria, rash, confusion, right sweats, epistaxis, other Treatments Prior to Arrival: "cold medicine" - Related Data Previous Rx's Medication Instructions Recorded Last Taken Type Fluticasone [Flonase] 1 spray NS QDAY #1 bottle 03/21/19 Unknown Rx Loratadine [Allergy Relief] 10 mg PO DAILY #30 tablet 03/21/19 Unknown Rx diphenhydrAMINE [Benadryl CAP] 25 mg PO Q6HR PRN #30 capsule 03/21/19 Unknown Rx Erythromycin [Erythromycin Ophth 1 applic OD QID 10 Days #1 tube 06/10/19 Unknown Rx Oint] Ibuprofen [Motrin 800 MG tab] 800 mg PO Q8HR PRN #30 tablet 09/24/19 Unknown Rx Tobramycin/Dexamethasone [Tobradex 1 drop OS Q4HR 7 Days #1 drops.susp 09/24/19 Unknown Rx Eye Drops 0.3/0.1%] Naproxen 500 mg PO Q12H PRN #24 tablet 11/19/19 Unknown Rx hydrOXYzine PAMOATE [Vistaril] 25 mg PO Q6HR PRN #24 capsule 11/19/19 Unknown Rx Albuterol Sulfate [Proventil Hfa] 1 - 2 puff IH Q6H PRN #1 hfa.aer.ad 05/10/20 Unknown Rx Azithromycin [Zithromax Z-MAMADOU] 250 mg PO DAILY #6 tablet 05/10/20 Unknown Rx Benzonatate [Tessalon Perles] 100 mg PO Q8HR #30 capsule 05/10/20 Unknown Rx Cetirizine HCl [Zyrtec 10mg tab] 10 mg PO DAILY #30 tablet 05/10/20 Unknown Rx Ibuprofen [Motrin] 800 mg PO Q8HR PRN #24 tablet 05/10/20 Unknown Rx methylPREDNISolone [Medrol 4MG 4 mg PO DAILY #21 tab.ds.pk 05/10/20 Unknown Rx DOSEPAK (21 tabs)] Allergies Allergy/AdvReac Type Severity Reaction Status Date / Time Penicillins Allergy Unknown Verified 03/21/19 00:34 ED Review of Systems ROS: Stated complaint: BRITTNEY/COUGH Other details as noted in HPI Constitutional: denies: chills, fever Eyes: denies: eye pain, eye discharge, vision change ENT: throat pain, congestion, other (Frontal sinus pressure pain). denies: ear pain Respiratory: cough, shortness of breath, wheezing Cardiovascular: denies: chest pain, palpitations Endocrine: no symptoms reported Gastrointestinal: denies: abdominal pain, nausea, diarrhea Genitourinary: denies: urgency, dysuria Musculoskeletal: denies: back pain, joint swelling, arthralgia Skin: denies: rash, lesions Neurological: headache. denies: weakness, paresthesias Psychiatric: denies: anxiety, depression Hematological/Lymphatic: denies: easy bleeding, easy bruising ED Past Medical Hx - Past Medical History Previous Medical History?: Yes Additional medical history: high cholesterol - Surgical History Past Surgical History?: No - Social History Smoking Status: Never Smoker Substance Use Type: Alcohol - Medications Home Medications: Home Medications Medication Instructions Recorded Confirmed Last Taken Type Fluticasone [Flonase] 1 spray NS QDAY #1 bottle 03/21/19 Unknown Rx Loratadine [Allergy Relief] 10 mg PO DAILY #30 tablet 03/21/19 Unknown Rx diphenhydrAMINE [Benadryl CAP] 25 mg PO Q6HR PRN #30 capsule 03/21/19 Unknown Rx Erythromycin [Erythromycin Ophth 1 applic OD QID 10 Days #1 tube 06/10/19 Unknown Rx Oint] Ibuprofen [Motrin 800 MG tab] 800 mg PO Q8HR PRN #30 tablet 09/24/19 Unknown Rx Tobramycin/Dexamethasone [Tobradex 1 drop OS Q4HR 7 Days #1 drops.susp 09/24/19 Unknown Rx Eye Drops 0.3/0.1%] Naproxen 500 mg PO Q12H PRN #24 tablet 11/19/19 Unknown Rx hydrOXYzine PAMOATE [Vistaril] 25 mg PO Q6HR PRN #24 capsule 11/19/19 Unknown Rx Albuterol Sulfate [Proventil Hfa] 1 - 2 puff IH Q6H PRN #1 hfa.aer.ad 05/10/20 Unknown Rx Azithromycin [Zithromax Z-MAMADOU] 250 mg PO DAILY #6 tablet 05/10/20 Unknown Rx Benzonatate [Tessalon Perles] 100 mg PO Q8HR #30 capsule 05/10/20 Unknown Rx Cetirizine HCl [Zyrtec 10mg tab] 10 mg PO DAILY #30 tablet 05/10/20 Unknown Rx Ibuprofen [Motrin] 800 mg PO Q8HR PRN #24 tablet 05/10/20 Unknown Rx methylPREDNISolone [Medrol 4MG 4 mg PO DAILY #21 tab.ds.pk 05/10/20 Unknown Rx DOSEPAK (21 tabs)] ED Physical Exam - General Limitations: No Limitations General appearance: alert, in no apparent distress - Head Head exam: Present: atraumatic, normocephalic, normal inspection - Eye Eye exam: Present: normal appearance, PERRL, EOMI Pupils: Present: normal accommodation - ENT ENT exam: Present: normal orophraynx, mucous membranes moist, TM's normal bilaterally, normal external ear exam, other (Palpable bilateral maxillary sinus tenderness: Grossly congested nasal passages; erythematous oropharynx) - Neck Neck exam: Present: normal inspection, full ROM, lymphadenopathy - Respiratory Respiratory exam: Present: normal lung sounds bilaterally, wheezes (Mild diffuse wheezes throughout). Absent: respiratory distress, rales, rhonchi, chest wall tenderness, accessory muscle use, decreased breath sounds - Cardiovascular Cardiovascular Exam: Present: regular rate, normal rhythm, normal heart sounds. Absent: systolic murmur, diastolic murmur, rubs, gallop - GI/Abdominal GI/Abdominal exam: Present: soft, normal bowel sounds. Absent: tenderness, guarding, rebound, hyperactive bowel sounds - Extremities Exam Extremities exam: Present: normal inspection, full ROM, normal capillary refill - Back Exam Back exam: Present: normal inspection, full ROM. Absent: tenderness, CVA tenderness (R), CVA tenderness (L), muscle spasm, vertebral tenderness - Neurological Exam Neurological exam: Present: alert, oriented X3, CN II-XII intact, normal gait, reflexes normal - Psychiatric Psychiatric exam: Present: normal affect, normal mood - Skin Skin exam: Present: warm, dry, intact, normal color. Absent: rash ED Course Vital Signs 05/10/20 00:11 Temperature 98.2 F Pulse Rate 82 Respiratory 18 Rate Blood Pressure 136/90 O2 Sat by Pulse 100 Oximetry ED Medical Decision Making - Lab Data Result diagrams: 05/10/20 00:19 05/10/20 00:19 - Radiology Data Radiology results: report reviewed, image reviewed Findings [address] [address] XRay Report Signed Patient: SHELBY NGO MR#: [id number] 6 : 1975 Acct:[id number] Age/Sex: 44 / M ADM Date: 05/09/20 Loc: ED Attending Dr: Ordering Physician: JOSELIN KENNEDY Date of Service: 05/10/20 Procedure(s): XR chest routine 2V Accession Number(s): [id number] cc: JOSELIN KENNEDY Fluoro Time In Minutes: CHEST 2 VIEWS INDICATION: cough. COMPARISON: 11/18/2019. FINDINGS: Support devices: None. Heart: Within normal limits. Lungs/Pleura: No acute air space or interstitial disease. No significant pleural effusion. IMPRESSION: No acute findings. Signer Name: Hira Warner MD Signed: 05/10/2020 2:52 AM Workstation Name: [id number] Transcribed By: ES Dictated By: Hira Warner MD Electronically Authenticated By: Hira Warner MD Signed Date/Time: 05/10/20251 DD/ 1 TD/TT: - Medical Decision Making This is 44 yo AA male with no past medical history who presents to the ED with c/o acute onset persistent nasal and sinus congestion, frontal sinus congestion, headache, sore throat and hoarseness, dry cough with generalized weakness for the last 1 week, worse in the last 2 days. Patient states that he has been taking OTC remedies with no relief. Patient states that he decided to come to the ED for evaluation when the symptoms get worse. In the ED, patient is alert and oriented x 3 and is in no acute distress. Patient was treated in the ED with Duoneb and prednisone. Chest x-ray shows no acute cardiopulmonary abnormalities or pneumonitis. On reevaluation, patient felt better and was discharged home on medications and advised to follow up with her his Primary Care Physician in 7-10 days for reevaluation, and was advised to return to the ED immediately if symptoms get worse. - Differential Diagnosis Sinusitis, pneumonia, URI, pharyngitis, bronchitis Critical care attestation.: If time is entered above; I have spent that time in minutes in the direct care of this critically ill patient, excluding procedure time. ED Disposition Clinical Impression: Acute bacterial sinusitis, Acute upper respiratory infection Acute pharyngitis Qualifiers: Pharyngitis/tonsillitis etiology: unspecified etiology Qualified Code(s): J02.9 - Acute pharyngitis, unspecified Acute bronchitis Qualifiers: Bronchitis organism: unspecified organism Qualified Code(s): J20.9 - Acute bronchitis, unspecified Disposition: DC-01 TO HOME OR SELFCARE Is pt being admited?: No Does the pt Need Aspirin: No Condition: Stable Instructions: Acute Bronchitis (ED), Pharyngitis (ED), Acute Bacterial Rh inosinusitis (ED) Additional Instructions: Take medication with food, drink plenty of fluids and follow-up with your primary care physician in 7 to 10 days for reevaluation. Return to the ED immediately if symptoms get worse. Prescriptions: methylPREDNISolone [Medrol 4MG DOSEPAK (21 tabs)] 4 mg PO DAILY #21 tab.ds.pk Ibuprofen [Motrin] 800 mg PO Q8HR PRN #24 tablet PRN Reason: Pain , Severe (7-10) Albuterol Sulfate [Proventil Hfa] 1 - 2 puff IH Q6H PRN #1 hfa.aer.ad PRN Reason: Dyspnea Benzonatate [Tessalon Perles] 100 mg PO Q8HR #30 capsule Azithromycin [Zithromax Z-MAMADOU] 250 mg PO DAILY #6 tablet Cetirizine HCl [Zyrtec 10mg tab] 10 mg PO DAILY #30 tablet Referrals: [facility] [Provider Group] - 3-5 Days Forms: Work/School Release Form(ED) Time of Disposition: 03:16 Print Language: KYRGYZ
== END 2020-05-10 03:20 | disposition home or self-care (01) ==
LOC: ED 23:24
DX: J01.80 Other acute sinusitis (principal); B96.89 Other specified bacterial agents as the cause of diseases classified elsewhere; J02.8 Acute pharyngitis due to other specified organisms; J20.9 Acute bronchitis, unspecified; Z79.899 Other long term (current) drug therapy; Z88.0 Allergy status to penicillin
CPT/HCPCS: 36415; 71046; 80048; 85025; 93005; 99284; J7512

== ENCOUNTER 2020-09-03 | Emergency (ER) | payer SELFPAY ==
[2020-09-03 00:08] VITALS: BP 131/85
== END 2020-09-03 01:30 | disposition left against medical advice (07) ==
LOC: ED
DX: R07.9 Chest pain, unspecified (principal); Z53.21 Procedure and treatment not carried out due to patient leaving prior to being seen by health care provider

== ENCOUNTER 2020-09-13 01:41 | Emergency (ER) | payer SELFPAY ==
[2020-09-13] MEDS ORDERED: ASPIRIN 325 MG TAB PO ONE (02:03)
[2020-09-13 02:11] VITALS: BP 130/86
--- NOTE | 2020-09-13 02:44 | XRay Report ---
XR chest 1V ap INDICATION / CLINICAL INFORMATION: Chest Pain COMPARISON: 05/10/2020 FINDINGS: SUPPORT DEVICES: None. HEART / MEDIASTINUM: No significant abnormality. LUNGS / PLEURA: Lungs are clear. Costophrenic sulci are sharp. No pneumothorax. ADDITIONAL FINDINGS: No significant additional findings. IMPRESSION: 1. No acute findings. Signer Name: Venancio Vincent MD Signed: 09/13/2020 2:40 AM Workstation Name: [id number]
[2020-09-13 02:45] LABS: BUN/Creatinine Ratio 18; Blood Urea Nitrogen 16 mg/dL (9-20); Calcium 9.7 mg/dL (8.4-10.2); Hemolysis Index 5
[2020-09-13 02:56] LABS: Hematocrit 39.5 % (35.5-45.6); Hemoglobin 13.3 gm/dl (11.8-15.2); Mean Corpuscular HGB Conc 34 % (32-34); Mean Corpuscular Volume 91 fl (84-94); Platelet Count 200 K/mm3 (140-440); Red Blood Count 4.34 M/mm3 (3.65-5.03); Red Cell Distribution Width 14.8 % (13.2-15.2)
[2020-09-13 03:07] LABS: Eosinophils % (Auto) 3.4 % (0.0-4.3); Lymphocytes % (Auto) 33.7 % (13.4-35.0); Monocytes % (Auto) 13.9 % (0.0-7.3)
[2020-09-13 03:08] LABS: Basophils % (Auto) 0.3 % (0.0-1.8); Eosinophils # (Auto) 0.1 K/mm3 (0.0-0.4); Lymphocytes # (Auto) 1.4 K/mm3 (1.2-5.4); Monocytes # (Auto) 0.6 K/mm3 (0.0-0.8)
[2020-09-13] MEDS ORDERED: IBUPROFEN 400 MG TAB PO ONE (03:32)
[2020-09-13] MEDS ORDERED: ACETAMINOPHEN 325 MG TAB PO ONE (03:32)
--- NOTE | 2020-09-13 03:32 | Emergency Department Report ---
ED General Adult HPI - General Chief complaint: Chest Pain Stated complaint: CHEST PAIN/LEFT SIDE NUMBNESS PUI?: No Time Seen by Provider: 09/13/20 03:09 Source: patient, RN notes reviewed, old records reviewed Mode of arrival: Ambulatory Limitations: No Limitations - History of Present Illness Initial comments: The patient was evaluated in the emergency department for symptoms described in the history of present illness. He/she was evaluated in the context of the global COVID-19 pandemic, which necessitated consideration that the patient might be at risk for infection with the virus that causes COVID-19. Institutional protocols and algorithms that pertain to the evaluation of patients at risk for COVID-19 are in a state of rapid change based on information released by regulatory bodies including the CDC and federal and state organizations. These policies and algorithms were followed during the patient's care in the emergency department. Please note that these policies, procedures and recommendations changed on a rapid basis. 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 He is not known to myself previously. He reports he may have a history of high cholesterol. He does not have a primary care doctor. He presents to the ER with a complaint of nontraumatic left-sided chest wall pain, which does not radiate to the back, arms or neck. There is no vomiting, diaphoresis, or exertional shortness of breath. He denies travel, surgery, leg pain or leg swelling, oral contraceptive use, DVT and pulmonary embolism risk factors. He denies a family and personal history of ischemic heart disease, DVT and pulmonary embolism. Of note, the patient also associates/endorses nontraumatic left bicep/tricep/forearm pain, present for approximately 1 week. His left-sided chest wall pain is present for 1 week. He also endorses a complaint of "migraine headache." He describes a headache which is frontal, bitemporal, intermittent, and and "goes all over." He states he has been having headaches like this "for months and years." He denies sudden thunderclap headache, and indicates that the headache is not the worst headache of his life. The headache did not reach maximal intensity within an hour. This headache that has been having has been present for approximately 1 week intermittently. There is no loss of vision. There is no neck pain. There is no extremity weakness or numbness. There is no ataxia. He is taking some [id number] Goody powder and aspirin, with minimal relief in symptoms. No fever, no chills, no neck pain, no neck stiffness, no loss of taste or smell. -: Gradual, days(s) Location: head, chest, left, upper extremity Radiation: non-radiation Quality: aching Consistency: intermittent Improves with: other (Chest wall pain decreases with rest. It increases with palpation. Headache does not have exacerbating or relieving factors) - Related Data Previous Rx's Medication Instructions Recorded Last Taken Type Fluticasone [Flonase] 1 spray NS QDAY #1 bottle 03/21/19 Unknown Rx Loratadine [Allergy Relief] 10 mg PO DAILY #30 tablet 03/21/19 Unknown Rx diphenhydrAMINE [Benadryl CAP] 25 mg PO Q6HR PRN #30 capsule 03/21/19 Unknown Rx Erythromycin [Erythromycin Ophth 1 applic OD QID 10 Days #1 tube 06/10/19 Unknown Rx Oint] Ibuprofen [Motrin 800 MG tab] 800 mg PO Q8HR PRN #30 tablet 09/24/19 Unknown Rx Tobramycin/Dexamethasone [Tobradex 1 drop OS Q4HR 7 Days #1 drops.susp 09/24/19 Unknown Rx Eye Drops 0.3/0.1%] Naproxen 500 mg PO Q12H PRN #24 tablet 11/19/19 Unknown Rx hydrOXYzine PAMOATE [Vistaril] 25 mg PO Q6HR PRN #24 capsule 11/19/19 Unknown Rx Albuterol Sulfate [Proventil Hfa] 1 - 2 puff IH Q6H PRN #1 hfa.aer.ad 05/10/20 Unknown Rx Azithromycin [Zithromax Z-MAMADOU] 250 mg PO DAILY #6 tablet 05/10/20 Unknown Rx Benzonatate [Tessalon Perles] 100 mg PO Q8HR #30 capsule 05/10/20 Unknown Rx Cetirizine HCl [Zyrtec 10mg tab] 10 mg PO DAILY #30 tablet 05/10/20 Unknown Rx Ibuprofen [Motrin] 800 mg PO Q8HR PRN #24 tablet 05/10/20 Unknown Rx methylPREDNISolone [Medrol 4MG 4 mg PO DAILY #21 tab.ds.pk 05/10/20 Unknown Rx DOSEPAK (21 tabs)] Acetaminophen [Non-Aspirin Extra 500 mg PO Q6HR PRN #30 tablet 09/13/20 Unknown Rx Strength] Ibuprofen [Motrin] 600 mg PO Q8H PRN #30 tablet 09/13/20 Unknown Rx Allergies Allergy/AdvReac Type Severity Reaction Status Date / Time Penicillins Allergy Unknown Verified 03/21/19 00:34 ED Review of Systems ROS: Stated complaint: CHEST PAIN/LEFT SIDE NUMBNESS Other details as noted in HPI Constitutional: denies: fever, malaise, weakness Eyes: denies: eye discharge, vision change ENT: denies: epistaxis Respiratory: denies: cough, shortness of breath, SOB with exertion Cardiovascular: chest pain (Chest wall pain). denies: dyspnea on exertion Gastrointestinal: denies: abdominal pain, nausea, vomiting, hematemesis, melena, hematochezia Musculoskeletal: arthralgia, myalgia Neurological: headache. denies: weakness, numbness, paresthesias, confusion, abnormal gait, vertigo ED Past Medical Hx - Past Medical History Previous Medical History?: Yes Additional medical history: high cholesterol - Surgical History Past Surgical History?: No - Social History Smoking Status: Current Every Day Smoker Substance Use Type: None - Medications Home Medications: Home Medications Medication Instructions Recorded Confirmed Last Taken Type Fluticasone [Flonase] 1 spray NS QDAY #1 bottle 03/21/19 Unknown Rx Loratadine [Allergy Relief] 10 mg PO DAILY #30 tablet 03/21/19 Unknown Rx diphenhydrAMINE [Benadryl CAP] 25 mg PO Q6HR PRN #30 capsule 03/21/19 Unknown Rx Erythromycin [Erythromycin Ophth 1 applic OD QID 10 Days #1 tube 06/10/19 Unknown Rx Oint] Ibuprofen [Motrin 800 MG tab] 800 mg PO Q8HR PRN #30 tablet 09/24/19 Unknown Rx Tobramycin/Dexamethasone [Tobradex 1 drop OS Q4HR 7 Days #1 drops.susp 09/24/19 Unknown Rx Eye Drops 0.3/0.1%] Naproxen 500 mg PO Q12H PRN #24 tablet 11/19/19 Unknown Rx hydrOXYzine PAMOATE [Vistaril] 25 mg PO Q6HR PRN #24 capsule 11/19/19 Unknown Rx Albuterol Sulfate [Proventil Hfa] 1 - 2 puff IH Q6H PRN #1 hfa.aer.ad 05/10/20 Unknown Rx Azithromycin [Zithromax Z-MAMADOU] 250 mg PO DAILY #6 tablet 05/10/20 Unknown Rx Benzonatate [Tessalon Perles] 100 mg PO Q8HR #30 capsule 05/10/20 Unknown Rx Cetirizine HCl [Zyrtec 10mg tab] 10 mg PO DAILY #30 tablet 05/10/20 Unknown Rx Ibuprofen [Motrin] 800 mg PO Q8HR PRN #24 tablet 05/10/20 Unknown Rx methylPREDNISolone [Medrol 4MG 4 mg PO DAILY #21 tab.ds.pk 05/10/20 Unknown Rx DOSEPAK (21 tabs)] Acetaminophen [Non-Aspirin Extra 500 mg PO Q6HR PRN #30 tablet 09/13/20 Unknown Rx Strength] Ibuprofen [Motrin] 600 mg PO Q8H PRN #30 tablet 09/13/20 Unknown Rx ED Physical Exam - General Limitations: No Limitations General appearance: alert, in no apparent distress - Head Head exam: Present: atraumatic, normocephalic - Eye Eye exam: Present: normal appearance, PERRL, EOMI, other (Visual acuity intact to finger counting, color perception, reading at a close distance). Absent: nystagmus - ENT ENT exam: Present: normal exam, normal orophraynx, mucous membranes moist, normal external ear exam - Neck Neck exam: Present: normal inspection, full ROM. Absent: tenderness, meningismus - Respiratory Respiratory exam: Present: normal lung sounds bilaterally, chest wall tenderness. Absent: respiratory distress, wheezes, rales, rhonchi, stridor - Cardiovascular Cardiovascular Exam: Present: regular rate, normal rhythm, normal heart sounds. Absent: bradycardia, tachycardia, irregular rhythm, systolic murmur, diastolic murmur, rubs, gallop - GI/Abdominal GI/Abdominal exam: Present: soft, normal bowel sounds. Absent: distended, tenderness, guarding, rebound, rigid, pulsatile mass - Rectal Rectal exam: Present: deferred - Extremities Exam Extremities exam: Present: normal inspection, full ROM, other (2+ pulses noted in the bilateral upper and lower extremities. There is no palpable cord. negative Homans sign. Muscular compartments are soft. The pelvis is stable.). Absent: pedal edema, calf tenderness - Back Exam Back exam: Present: normal inspection, full ROM. Absent: tenderness, CVA tenderness (R), CVA tenderness (L), paraspinal tenderness, vertebral tenderness - Neurological Exam Neurological exam: Present: alert, oriented X3, normal gait, other (There is no facial droop. The tongue is midline. Extraocular movements are intact bilaterally. There is 5 out of 5 strength in bilateral upper and lower extrem ities. Sensation is intact to light touch bilateral upper and lower extremities. There is no past-pointing. There is no pronator drift.). Absent: motor sensory deficit - Psychiatric Psychiatric exam: Present: normal affect, normal mood - Skin Skin exam: Present: warm, dry, intact, normal color. Absent: rash ED Course Vital Signs 09/13/20 01:46 Temperature 97.8 F Pulse Rate 75 Respiratory 18 Rate Blood Pressure 130/86 O2 Sat by Pulse 98 Oximetry ED Medical Decision Making - Lab Data Result diagrams: 09/13/20 02:04 09/13/20 02:04 Vital Signs 09/13/20 01:46 Temperature 97.8 F Pulse Rate 75 Respiratory 18 Rate Blood Pressure 130/86 O2 Sat by Pulse 98 Oximetry Lab Results 09/13/20 09/13/20 Range/Units 02:04 02:04 WBC 4.1 L (4.5-11.0) K/mm3 RBC 4.34 (3.65-5.03) M/mm3 Hgb 13.3 (11.8-15.2) gm/dl Hct 39.5 (35.5-45.6) % MCV 91 (84-94) fl MCH 31 (28-32) pg MCHC 34 (32-34) % RDW 14.8 (13.2-15.2) % Plt Count 200 (140-440) K/mm3 Lymph % (Auto) 33.7 (13.4-35.0) % [place] % (Auto) 13.9 H (0.0-7.3) % Eos % (Auto) 3.4 (0.0-4.3) % Baso % (Auto) 0.3 (0.0-1.8) % Lymph # (Auto) 1.4 (1.2-5.4) K/mm3 [place] # (Auto) 0.6 (0.0-0.8) K/mm3 Eos # (Auto) 0.1 (0.0-0.4) K/mm3 Baso # (Auto) 0.0 (0.0-0.1) K/mm3 Seg Neutrophils % 48.7 (40.0-70.0) % Seg Neutrophils # 2.0 (1.8-7.7) K/mm3 Sodium 138 (137-145) mmol/L Potassium 3.8 (3.6-5.0) mmol/L Chloride 100.4 (98-107) mmol/L Carbon Dioxide 25 (22-30) mmol/L Anion Gap 16 mmol/L BUN 16 (9-20) mg/dL Creatinine 0.9 (0.8-1.3) mg/dL Estimated GFR > 60 ml/min BUN/Creatinine Ratio 18 % Glucose 107 H (75-100) mg/dL Calcium 9.7 (8.4-10.2) mg/dL Troponin T < 0.010 (0.00-0.029) ng/mL - EKG Data -: EKG Interpreted by Vt EKG shows normal: sinus rhythm Rate: normal - EKG Data Interpretation: unchanged when compared t 09/13/20 04:03 Sinus rhythm, 72 bpm, normal axis, normal intervals, high left ventricular voltage, not a STEMI. Unchanged from prior EKG from May 2020. - Radiology Data Radiology results: pending, report reviewed, image reviewed 1 view x-ray of the chest is negative for acute findings. - Medical Decision Making Differential diagnosis, including but not limited to: Costochondritis, migraine headache, tension headache, cluster headache, nonlethal headache Assessment and plan: 45-year-old gentleman who is not currently tachycardic, tachypneic or hypoxic, who denies DVT and pulmonary embolism risk factors, who is low risk by Wells criteria for pulmonary embolism, EKG unchanged x from prior, troponin negative x 1], symptoms present for 7 days. Patient has equal pulses in the upper and lower extremities, no pulsatile abdominal mass, and an unremarkable x-ray of the chest, therefore, aortic disease is very unlikely. Patient at low risk for major adverse cardiac event as per heart score. Given reproducibility, history and physical, do not have a high suspicion for GERD, gastritis, hiatal hernia at this time. Pneumonia is unlikely given history, physical, and x-ray findings. I find coronary artery disease of significance to be unlikely. Patient has a GCS of 15, with a nonfocal neurologic examination. We will treat his symptoms, he can follow-up with an outpatient primary care doctor or pallet assembler. Chest wall pain present for greater than 8 hours, therefore, as per the [employer] clinical policy, acute myocardial infarction will be excluded with 1 set of cardiac enzymes, as his symptoms have been pres ent for about a week. Critical care attestation.: If time is entered above; I have spent that time in minutes in the direct care of this critically ill patient, excluding procedure time. ED Disposition Clinical Impression: Chest wall pain Headache Qualifiers: Headache type: unspecified Headache chronicity pattern: episodic headache Intractability: not intractable Qualified Code(s): R51.9 - Headache, unspecified Disposition: DC-01 TO HOME OR SELFCARE Is pt being admited?: No Does the pt Need Aspirin: No Condition: Stable Instructions: Chest Pain (ED), Chest Wall Pain Additional Instructions: Rest, avoid heavy lifting, and avoid strenuous physical activities. Patient may alternate ice packs and heat packs as needed for chest wall pain. Recommend that patient get at least 7 hours of good quality uninterrupted sleep each night. Take the prescribed medications as needed and directed. In terms of the patient's chest wall pain, recommend follow-up with the primary care doctor or pallet assembler within the next 3 to 5 days. In terms of the patient's headache, recommend follow-up with a primary care doctor within the next 4 weeks. Please return to the emergency room right away with new pain, worsening pain, migration of pain, projectile vomiting, change in mental status, confusion, inability to tolerate liquid feeds, new, worsened or different symptoms not present on the initial emergency room evaluation. Referrals: RUTH COTNRERAS MD [Staff Physician] - 3-5 Days WENCESLAO COTO MD [Staff Physician] - 3-5 Days Forms: Work/School Release Form(ED) Heart Score - HEART Score History: Slightly suspicious EKG: Non-specific Age: < 45 Risk factors: 1-2 risk factors Troponin: < normal limit HEART Score: 2 - Critical Actions Critical Actions: 0-3 pts:0.9-1.7%risk of adverse cardiac event.Candidate for discharge
== END 2020-09-13 04:21 | disposition home or self-care (01) ==
LOC: ED 01:41
DX: R07.89 Other chest pain (principal); R51.9 Headache, unspecified; F17.200 Nicotine dependence, unspecified, uncomplicated; Z79.899 Other long term (current) drug therapy; Z88.0 Allergy status to penicillin
CPT/HCPCS: 36415; 71045; 80048; 84484; 85025; 93005

== ENCOUNTER 2020-11-02 17:55 | Emergency (ER) | payer OTHER ==
[2020-11-02 18:04] VITALS: BP 146/86
[2020-11-02] MEDS ORDERED: ASPIRIN 325 MG TAB PO ONE (18:18)
--- NOTE | 2020-11-02 18:18 | Event Note ---
ED Screening Note ED Screening Note: pt is a 45 yo male who presents to the ED with c/o left sided CP that began today he states it feels like a tightness he states it radiates to his left arm he states occasionally he feels nausea no vomiting or diaphoresis no cough or SOB denies PMHx allergy penicillin current every day smoker, 1 ppd current every day drinker, 12 pack of beer a day denies drug use denies family cardiac hx This initial assessment/diagnostic orders/clinical plan/treatment(s) is/are subject to change based on patients health status, clinical progression and re- assessment by fellow clinical providers in the ED. Further treatment and workup at subsequent clinical providers discretion. Patient/guardian urged not to elope from the ED as their condition may be serious if not clinically assessed and managed. Initial orders include: cp protocol
[2020-11-02 18:39] LABS: Basophils % (Auto) 0.6 % (0.0-1.8); Eosinophils # (Auto) 0.1 K/mm3 (0.0-0.4); Eosinophils % (Auto) 2.4 % (0.0-4.3); Hematocrit 42.3 % (35.5-45.6); Hemoglobin 13.9 gm/dl (11.8-15.2); Lymphocytes # (Auto) 1.3 K/mm3 (1.2-5.4); Lymphocytes % (Auto) 37.2 % (13.4-35.0); Mean Corpuscular HGB Conc 33 % (32-34); Mean Corpuscular Volume 93 fl (84-94); Monocytes # (Auto) 0.5 K/mm3 (0.0-0.8); Monocytes % (Auto) 13.3 % (0.0-7.3); Platelet Count 198 K/mm3 (140-440); Red Blood Count 4.56 M/mm3 (3.65-5.03); Red Cell Distribution Width 15.1 % (13.2-15.2)
--- NOTE | 2020-11-02 18:44 | XRay Report ---
CHEST PA AND LATERAL VIEWS INDICATION: Chest Pain. COMPARISON: 09/13/2020. FINDINGS: Support devices: None. Heart: Within normal limits. Lungs/Pleura: No acute pulmonary or pleural findings. IMPRESSION: 1. No acute findings. Signer Name: Nacho Bailey MD Signed: 11/02/2020 6:40 PM Workstation Name: [id number]
[2020-11-02 19:04] LABS: Alanine Aminotransferase 31 units/L (7-56); Albumin 4.5 g/dL (3.9-5); BUN/Creatinine Ratio 14; Blood Urea Nitrogen 11 mg/dL (9-20); Calcium 8.9 mg/dL (8.4-10.2); Hemolysis Index 4
--- NOTE | 2020-11-02 22:25 | Emergency Department Report ---
ED Chest Pain HPI - General Chief Complaint: Chest Pain Stated Complaint: CHEST PAIN/NUMBNESS ON LEFT SIDE OF BODY Time Seen by Provider: 11/02/20 18:16 Source: patient Mode of arrival: Ambulatory Limitations: No Limitations - History of Present Illness Initial Comments: Chief complaint chest pain HPI: This is a 45-year-old male history of tobacco and alcohol dependence who presents with chest pain which began just before eating dinner. Patient states he has chest pain on a regular basis. No association with food or exertion. Pain is tight left chest. He has associated left bicep numbness tingling. He denies shortness of breath. He denies fever. He denies cough. Denies headache. He states that "I smoke and drink too much". He drinks 12 bottles of beer daily. He is vaping to stop smoking. However due to vaping lung injury risk he returned back to smoking cigarettes. No family history of cardiac disease. He does not have a PCP. He recently obtained health insurance through [employer]. 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 MD Complaint: chest pain -: Gradual, This evening Onset: during rest Pain Location: left chest Pain Radiation: none Severity: mild Severity scale (0 -10): 5 Quality: tightness Consistency: constant Improves With: nothing Worsens With: nothing Treatments Prior to Arrival: none - Related Data Previous Rx's Medication Instructions Recorded Last Taken Type Fluticasone [Flonase] 1 spray NS QDAY #1 bottle 03/21/19 Unknown Rx Loratadine [Allergy Relief] 10 mg PO DAILY #30 tablet 03/21/19 Unknown Rx diphenhydrAMINE [Benadryl CAP] 25 mg PO Q6HR PRN #30 capsule 03/21/19 Unknown Rx Erythromycin [Erythromycin Ophth 1 applic OD QID 10 Days #1 tube 06/10/19 Unknown Rx Oint] Ibuprofen [Motrin 800 MG tab] 800 mg PO Q8HR PRN #30 tablet 09/24/19 Unknown Rx Tobramycin/Dexamethasone [Tobradex 1 drop OS Q4HR 7 Days #1 drops.susp 09/24/19 Unknown Rx Eye Drops 0.3/0.1%] Naproxen 500 mg PO Q12H PRN #24 tablet 11/19/19 Unknown Rx hydrOXYzine PAMOATE [Vistaril] 25 mg PO Q6HR PRN #24 capsule 11/19/19 Unknown Rx Albuterol Sulfate [Proventil Hfa] 1 - 2 puff IH Q6H PRN #1 hfa.aer.ad 05/10/20 Unknown Rx Azithromycin [Zithromax Z-MAMADOU] 250 mg PO DAILY #6 tablet 05/10/20 Unknown Rx Benzonatate [Tessalon Perles] 100 mg PO Q8HR #30 capsule 05/10/20 Unknown Rx Cetirizine HCl [Zyrtec 10mg tab] 10 mg PO DAILY #30 tablet 05/10/20 Unknown Rx Ibuprofen [Motrin] 800 mg PO Q8HR PRN #24 tablet 05/10/20 Unknown Rx methylPREDNISolone [Medrol 4MG 4 mg PO DAILY #21 tab.ds.pk 05/10/20 Unknown Rx DOSEPAK (21 tabs)] Acetaminophen [Non-Aspirin Extra 500 mg PO Q6HR PRN #30 tablet 09/13/20 Unknown Rx Strength] Ibuprofen [Motrin] 600 mg PO Q8H PRN #30 tablet 09/13/20 Unknown Rx Allergies Allergy/AdvReac Type Severity Reaction Status Date / Time Penicillins Allergy Hives Verified 11/02/20 18:02 Heart Score - HEART Score History: Slightly suspicious EKG: Normal Age: < 45 Risk factors: 1-2 risk factors Troponin: < normal limit HEART Score: 1 ED Review of Systems ROS: Stated complaint: CHEST PAIN/NUMBNESS ON LEFT SIDE OF BODY Other details as noted in HPI Comment: All other systems reviewed and negative Constitutional: denies: fever, malaise Respiratory: denies: shortness of breath Cardiovascular: chest pain Gastrointestinal: denies: abdominal pain, nausea, vomiting Neurological: numbness, paresthesias ED Past Medical Hx - Past Medical History Previous Medical History?: No Additional medical history: high cholesterol - Surgical History Past Surgical History?: No - Social History Smoking Status: Current Every Day Smoker Substance Use Type: Alcohol - Medications Home Medications: Home Medications Medication Instructions Recorded Confirmed Last Taken Type Fluticasone [Flonase] 1 spray NS QDAY #1 bottle 03/21/19 Unknown Rx Loratadine [Allergy Relief] 10 mg PO DAILY #30 tablet 03/21/19 Unknown Rx diphenhydrAMINE [Benadryl CAP] 25 mg PO Q6HR PRN #30 capsule 03/21/19 Unknown Rx Erythromycin [Erythromycin Ophth 1 applic OD QID 10 Days #1 tube 06/10/19 Unknown Rx Oint] Ibuprofen [Motrin 800 MG tab] 800 mg PO Q8HR PRN #30 tablet 09/24/19 Unknown Rx Tobramycin/Dexamethasone [Tobradex 1 drop OS Q4HR 7 Days #1 drops.susp 09/24/19 Unknown Rx Eye Drops 0.3/0.1%] Naproxen 500 mg PO Q12H PRN #24 tablet 11/19/19 Unknown Rx hydrOXYzine PAMOATE [Vistaril] 25 mg PO Q6HR PRN #24 capsule 11/19/19 Unknown Rx Albuterol Sulfate [Proventil Hfa] 1 - 2 puff IH Q6H PRN #1 hfa.aer.ad 05/10/20 Unknown Rx Azithromycin [Zithromax Z-MAMADOU] 250 mg PO DAILY #6 tablet 05/10/20 Unknown Rx Benzonatate [Tessalon Perles] 100 mg PO Q8HR #30 capsule 05/10/20 Unknown Rx Cetirizine HCl [Zyrtec 10mg tab] 10 mg PO DAILY #30 tablet 05/10/20 Unknown Rx Ibuprofen [Motrin] 800 mg PO Q8HR PRN #24 tablet 05/10/20 Unknown Rx methylPREDNISolone [Medrol 4MG 4 mg PO DAILY #21 tab.ds.pk 05/10/20 Unknown Rx DOSEPAK (21 tabs)] Acetaminophen [Non-Aspirin Extra 500 mg PO Q6HR PRN #30 tablet 09/13/20 Unknown Rx Strength] Ibuprofen [Motrin] 600 mg PO Q8H PRN #30 tablet 09/13/20 Unknown Rx ED Physical Exam - General Limitations: No Limitations General appearance: alert, in no apparent distress - Head Head exam: Present: atraumatic, normocephalic - Eye Eye exam: Present: normal appearance - ENT ENT exam: Present: mucous membranes moist - Neck Neck exam: Present: normal inspection, full ROM - Respiratory Respiratory exam: Present: normal lung sounds bilaterally. Absent: respiratory distress, wheezes, rales, rhonchi - Cardiovascular Cardiovascular Exam: Present: regular rate, normal rhythm, normal heart sounds. Absent: systolic murmur, diastolic murmur, rubs, gallop - GI/Abdominal GI/Abdominal exam: Present: soft, normal bowel sounds. Absent: distended, ten derness, guarding, rebound - Rectal Rectal exam: Present: deferred - Extremities Exam Extremities exam: Present: normal inspection - Neurological Exam Neurological exam: Present: alert, oriented X3 - Psychiatric Psychiatric exam: Present: normal affect, normal mood - Skin Skin exam: Present: warm, dry, intact, normal color. Absent: rash ED Course Vital Signs 11/02/20 18:01 Temperature 98.8 F Pulse Rate 96 H Respiratory 20 Rate Blood Pressure 146/86 O2 Sat by Pulse 100 Oximetry BEULAH score - Beulah Score Age > 65: (0) No Aspirin use within the Past 7 Days: (0) No 3 or more CAD Risk Factors: (0) No 2 or more Angina events in past 24 hrs: (0) No Known CAD with more than 50% Stenosis: (0) No Elevated Cardiac Markers: (0) No ST Deviation Greater than 0.5mm: (0) No BEULAH Score: 0 ED Medical Decision Making - Lab Data Result diagrams: 11/02/20 18:30 11/02/20 18:16 Laboratory Results - last 24 hr 11/02/20 11/02/20 11/02/20 18:16 18:30 21:17 WBC 3.4 L RBC 4.56 Hgb 13.9 Hct 42.3 MCV 93 MCH 30 MCHC 33 RDW 15.1 Plt Count 198 Lymph % (Auto) 37.2 H Stark % (Auto) 13.3 H Eos % (Auto) 2.4 Baso % (Auto) 0.6 Lymph # (Auto) 1.3 Stark # (Auto) 0.5 Eos # (Auto) 0.1 Baso # (Auto) 0.0 Seg Neutrophils % 46.5 Seg Neutrophils # 1.6 L Sodium 140 Potassium 3.8 Chloride 101.5 Carbon Dioxide 32 H Anion Gap 10 BUN 11 Creatinine 0.8 Estimated GFR > 60 BUN/Creatinine Ratio 14 Glucose 96 Calcium 8.9 Total Bilirubin 0.20 AST 27 ALT 31 Alkaline Phosphatase 71 Troponin T < 0.010 < 0.010 Total Protein 7.8 Albumin 4.5 Albumin/Globulin Ratio 1.4 Lipase 27 - EKG Data -: EKG Interpreted by Pa EKG shows normal: sinus rhythm, axis, intervals, QRS complexes, ST-T waves Rate: normal - Radiology Data Radiology results: report reviewed, image reviewed Chest radiograph: No acute findings according to radiology impression, chest radiographs PA lateral 2 views were obtained. - Medical Decision Making 1. Chest pain: Heart score 1, atypical for ACS. However patient will benefit from full physical exam to rule out or rule in cardiovascular risk factors. He has not obtain primary medical care since he has not been ill in adult age. I have encouraged him to call [facility] his new health insurance provider. 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 I have given a referral to our maintenance of way foreman. Troponin x2 both negative. EKG normal. Chest radiograph normal. I do not suspect ACS considerations peptic ulcer disease, GERD, chest wall pain. PERC negative for PE. Chest radiograph ruled out pneumothorax and pneumonia. I strongly suggested cessation of tobacco and alcohol use. I also recommended Alcoholics Anonymous. Patient denies depression. He states that he drinks in order to "feel good". CBC chemistry all within normal limits. Mild benign ethnic neutropenia noted Critical care attestation.: If time is entered above; I have spent that time in minutes in the direct care of this critically ill patient, excluding procedure time. ED Disposition Clinical Impression: Chest pain Disposition: DC-01 TO HOME OR SELFCARE Is pt being admited?: No Does the pt Need Aspirin: No Condition: Stable Instructions: Chest Pain (ED), Nonspecific Chest Pain, Adult, [id number] Referrals: PHILIPP TAY MD [Staff Physician] - 3-5 Days Forms: Work/School Release Form(ED)
== END 2020-11-02 22:39 | disposition home or self-care (01) ==
LOC: ED 17:55
DX: R07.89 Other chest pain (principal); R20.0 Anesthesia of skin; F17.200 Nicotine dependence, unspecified, uncomplicated; Z79.1 Long term (current) use of non-steroidal anti-inflammatories (NSAID); Z79.2 Long term (current) use of antibiotics; Z79.899 Other long term (current) drug therapy; Z88.0 Allergy status to penicillin
CPT/HCPCS: 36415; 71046; 80053; 83690; 84484; 85025; 93005

== ENCOUNTER 2021-01-27 21:57 | Emergency (ER) | payer OTHER ==
[2021-01-27 23:06] VITALS: BP 144/84
[2021-01-27] MEDS ORDERED: ASPIRIN 325 MG TAB PO ONE (23:06)
[2021-01-27 23:41] LABS: Basophils % (Auto) 0.4 % (0.0-1.8); Eosinophils # (Auto) 0.2 K/mm3 (0.0-0.4); Eosinophils % (Auto) 3.9 % (0.0-4.3); Hematocrit 42.7 % (35.5-45.6); Hemoglobin 14.5 gm/dl (11.8-15.2); Lymphocytes # (Auto) 1.7 K/mm3 (1.2-5.4); Lymphocytes % (Auto) 29.8 % (13.4-35.0); Mean Corpuscular HGB Conc 34 % (32-34); Mean Corpuscular Volume 91 fl (84-94); Monocytes # (Auto) 0.8 K/mm3 (0.0-0.8); Platelet Count 185 K/mm3 (140-440); Red Blood Count 4.71 M/mm3 (3.65-5.03); Red Cell Distribution Width 14.9 % (13.2-15.2)
[2021-01-28 00:06] LABS: Alanine Aminotransferase 26 units/L (7-56); Albumin 4.9 g/dL (3.9-5); BUN/Creatinine Ratio 16; Blood Urea Nitrogen 13 mg/dL (9-20); Calcium 9.4 mg/dL (8.4-10.2); Hemolysis Index 3
--- NOTE | 2021-01-28 02:39 | XRay Report ---
CHEST 2 VIEWS 2336 INDICATION / CLINICAL INFORMATION: chest pain COMPARISON: 11/02/2020 FINDINGS: SUPPORT DEVICES: None. HEART / MEDIASTINUM: No significant abnormality. LUNGS / PLEURA: No significant pulmonary or pleural abnormality. No pneumothorax. ADDITIONAL FINDINGS: No significant additional findings. IMPRESSION: No significant acute abnormality Signer Name: Marco Pizarro MD Signed: 01/28/2021 2:34 AM Workstation Name: [id number]
--- NOTE | 2021-01-29 10:33 | Electrocardiograph Report ---
[facility] Test Date: 2021-01-27 Test Time: 22:02:50 Pat Name: SHELBY NGO Department: Room: Gender: M Qi Specialist: : 1975 Requested By: KIERAN BENDER Order Number: [id number] Reading MD: Shiv Valenet Measurements Intervals [place] Rate: 87 P: 61 TN: 177 QRS: -30 QRSD: 90 T: 28 QT: 339 QTc: 409 Interpretive Statements Sinus rhythm Left axis deviation Consider anteroseptal infarct No previous ECG available for comparison Electronically Signed On 01-29-2021 10:33:13 EDT by Shiv Valente
== END 2021-01-28 02:21 ==
LOC: ED 21:57
DX: R07.89 Other chest pain (principal); Z53.21 Procedure and treatment not carried out due to patient leaving prior to being seen by health care provider
CPT/HCPCS: 36415; 71046; 80053; 84484; 85025; 93005

== ENCOUNTER 2021-05-10 19:26 | Emergency (ER) | payer OTHER ==
[2021-05-10 20:11] VITALS: BP 125/87
--- NOTE | 2021-05-10 20:37 | XRay Report ---
CHEST 2 VIEWS INDICATION / CLINICAL INFORMATION: Nonradiating right chest pain since this morning. COMPARISON: 2 views of the chest from 01/27/2021. FINDINGS: SUPPORT DEVICES: None. HEART / MEDIASTINUM: No significant abnormality. LUNGS / PLEURA: No significant pulmonary abnormality. No significant pleural effusion. No pneumothora x. ADDITIONAL FINDINGS: No significant additional findings. IMPRESSION: 1. No acute abnormality of the chest. Signer Name: Dewey Ren MD Signed: 05/10/2021 8:32 PM Workstation Name: [id number]
== END 2021-05-10 21:03 | disposition left against medical advice (07) ==
LOC: ED 19:26
DX: R07.9 Chest pain, unspecified (principal); Z53.21 Procedure and treatment not carried out due to patient leaving prior to being seen by health care provider
CPT/HCPCS: 71046; 93005